=== PATIENT | male | born 1965 | race Caucasian/White ===

== ENCOUNTER → 2017-06-21 | Outpatient (CLI) | payer OTHER ==
[~2017-06-21] MED LIST: FLUT0.15 NAE; QVRINH80 PO; SYMIN160 INH
--- NOTE | 2017-06-21 17:51 | EXERCISE STRESS ECHO ---
*NOTICE TO RECEIVING DEMOCRAT AGENCY This information is strictly Confidential and protected under [place] law. [place] law prohibits you from making any further disclosure of this information unless further disclosure is expressly permitted by the written consent of the person to whom it pertains or is authorized by law. A general authorization for the release of medical or other information is not sufficient for this purpose. Hospital accepts no responsibility if the information is made available to any other person, INCLUDING THE PATIENT. Interpretation Summary * Conclusions -- * Left ventricular systolic function is normal. * Normal diastolic function * Right ventricular systolic pressure is normal. * Normal exercise echocardiogram without evidence of inducible ischemia Procedure Details * ECHOEX, CPT #[id number] * ECHO COLOR FLOW, CPT #[id number] * ECHO DOPPLER, CPT #[id number] Left Ventricular Findings with Stress * Normal exercise echocardiogram without evidence of inducible ischemia Left Ventricle * The left ventricle is normal in size. * There is normal left ventricular wall thickness. * Ejection Fraction = 55-60%. * Left ventricular systolic function is normal. * Normal diastolic function * The left ventricular wall motion is normal. Right Ventricle * The right ventricle is normal in size and function. * The right ventricular systolic function is normal as assessed by tricuspid annular plane systolic excursion (TAPSE) (normal >1.5 cm). Atria * The left atrial size is normal. * Right atrial size is normal. Mitral Valve * The mitral valve is grossly normal. * There is trace mitral regurgitation. Tricuspid Valve * The tricuspid valve is not well visualized, but is grossly normal. * There is trace tricuspid regurgitation. * Right ventricular systolic pressure is normal. Aortic Valve * The aortic valve is normal in structure and function. * The aortic valve is trileaflet. * No hemodynamically significant valvular aortic stenosis. * There is no significant aortic regurgitation. Great Vessels * The aortic root is normal size. Pericardium * There is no pericardial effusion. Stress Parameters * Normal baseline electrocardiogram. * Stress ECG: No ST changes. No arrhythmias. * The stress portion of this study was personally supervised by the undersigned interpreting physician. * Rest heart rate was '56' BPM. * Rest blood pressure was '116/74' * Maximum heart rate achieved was 166 bpm. * Maximum heart rate was 97 % of maximum age-predicted heart rate. * Maximum blood pressure was '174/90' * Total exercise time was '9:01' * Maximum exercise MET level achieved was '10.1' METS * Maximum treadmill speed was '3.3' miles per hour. * Maximum treadmill elevation was '14'% grade. * Exercise was terminated due to 'target heart rate achieved' * Normal blood pressure response to exercise. Left Ventricular Findings with Stress * The baseline EKG was normal There were no significant ST or T-wave changes noted during exercise or recovery Baseline echocardiographic images were normal There was normal augmentation of all rich without development of wall motion abnormalities at peak exertion There was a normal heart rate and blood pressure response to exercise There were no symptoms reported during exercise or recovery [place] treadmill score: 9 (low risk) MMode 2D Measurements and Calculations IVSd 0.92 cm IVSs 1.2 cm LVIDd 4.8 cm LVIDs 3.1 cm LVPWd 0.98 cm LVPWs 1.3 cm IVS/LVPW 0.95 FS 35.9 % EDV(Teich) 108.8 ml ESV(Teich) 37.7 ml EF(Teich) 65.4 % EDV(cubed) 112.3 ml ESV(cubed) 29.6 ml EF(cubed) 73.7 % % IVS thick 31.5 % % LVPW thick 35.0 % LV mass(C)d 160.5 grams LV mass(C)dI 77.7 grams/m\S\2 LV mass(C)s 124.4 grams LV mass(C)sI 60.2 grams/m\S\2 SV(Teich) 71.1 ml SI(Teich) 34.4 ml/m\S\2 SV(cubed) 82.7 ml SI(cubed) 40.0 ml/m\S\2 Ao root diam 3.1 cm Ao root area 7.7 cm\S\2 ACS 1.8 cm LA dimension 3.9 cm asc Aorta Diam 3.0 cm LA/Ao 1.2 EDV(MOD-sp4) 67.0 ml ESV(MOD-sp4) 31.0 ml EF(MOD-sp4) 53.7 % EDV(MOD-sp2) 77.0 ml ESV(MOD-sp2) 34.0 ml EF(MOD-sp2) 55.8 % SV(MOD-sp4) 36.0 ml SI(MOD-sp4) 17.4 ml/m\S\2 SV(MOD-sp2) 43.0 ml SI(MOD-sp2) 20.8 ml/m\S\2 Doppler Measurements and Calculations MV E max akua 86.2 cm/sec MV A max akua 61.4 cm/sec MV E/A 1.4 MV P1/2t max akua 105.7 cm/sec MV P1/2t 111.3 msec MVA(P1/2t) 2.0 cm\S\2 MV dec slope 278.1 cm/sec\S\2 MV dec time 0.22 sec Ao V2 max 137.4 cm/sec Ao max PG 7.6 mmHg Ao max PG (full) 2.9 mmHg LV V1 max PG 4.6 mmHg LV V1 max 107.3 cm/sec PA V2 max 79.3 cm/sec PA max PG 2.5 mmHg PI max akua 157.2 cm/sec PI max PG 9.9 mmHg PI dec slope 142.8 cm/sec\S\2 PI P1/2t 322.4 msec TR max akua 183.0 cm/sec
== END | disposition home or self-care (01) ==
LOC: C.CPL 09:40
DX: R06.09 Other forms of dyspnea (principal); E78.5 Hyperlipidemia, unspecified; Z82.49 Family history of ischemic heart disease and other diseases of the circulatory system; Z68.33 Body mass index [BMI] 33.0-33.9, adult; E66.3 Overweight